=== PATIENT | female | born 1960 | race Caucasian/White ===

== ENCOUNTER 2017-08-08 11:56 | Emergency (ER) | payer BC ==
--- NOTE | 2017-08-08 12:14 | EDPHY ---
H & P Stated Complaint: Right Ankle Injury Time Seen by Provider: 08/08/17 12:13 HPI/ROS: HPI: This is a 57-year-old female who presents with Chief Complaint: Right Ankle injury Location: Right lateral ankle, left anterior knee Quality: Injury Duration: 1 hr prior to arrival Signs and Symptoms: No bleeding, no radiation, no numbness, no weakness, no tingling, no incontinence, + decreased range of motion, + swelling, + pain, no fever Timing: Acute Severity: 11/20 Context: Patient presents with complaints of right lateral ankle and left anterior knee injury. She was at a gas station, helping a another person get into the car when she accidentally tripped over the curb and injured her right ankle and left knee. She explains she everted right ankle and heard a pop. Fell onto left knee. Pain worsened with weight-bearing. Denies LOC/head injury/ neck pain/dizziness/nausea/vomiting/amnesia. Reports takes low-dose naltrexone for anti-inflammatory effects per her primary care provider. She has not taken the medication today. Patient reports that it does not cause her pain to flex her knee but only to weight bear on it. Modifying Factors: None Comment: ROS: see HPI Constitutional: No fever, no chills, no weight loss Eyes: No blurred vision Respiratory: No shortness of breath, no cough Cardiovascular: No chest pain Gastrointestinal: No nausea, no vomiting no diarrhea Genitourinary: No dysuria Extremities: No myalgias Neurologic: No weakness, no numbness Skin: No rashes Hematologic: No bruising, no bleeding MEDICAL/SURGICAL/SOCIAL HISTORY: Medical history: Autoimmune disease Surgical history: Denies Social history: with children. CONSTITUTIONAL: Moderate distress adult white female, awake and alert, no obvious distress HEENT: Atraumatic and normocephalic. NECK: supple, no midline tenderness, flexion 45 degrees, extension 45 degrees, right and left lateral flexion 45 degrees. No meningismus. Cardiovascular: Normal S1/S2, regular rate, regular rhythm, without murmur rub or gallop. PULMONARY/CHEST: Symmetrical and nontender. no crepitus. Clear to auscultation bilaterally. Good air movement. No accessory muscle usage. ABDOMEN: Soft, nondistended, nontender, no ecchymosis. PELVIC: no pain with rocking; bilateral hips flexion 125 degrees, extension 30 degrees, with no pain internal rotation and no pain external rotation. BACK: No midline tenderness, no paraspinous spasm, deep tendon reflexes 2/2, no pain with straight leg raise, No foot drop. Achilles reflexes are equal bilaterally. Able to walk on heels and toes without difficulty. EXTREMITIES: 2/2 pulses, strength 5/5, right Ankle: Plantar flexion to 50, dorsiflexion to 20. Foot inversion to 35 degree. Moderate tenderness/ swelling Anterior talofibular ligament. + tenderness/swelling Calcaneofibular ligament, no tenderness/swelling posterior talofibular ligament, no tenderness/ swelling posterior inferior tibiofibular ligament. Achilles tendon intact. Left KNEE: no effusion, no medial and lateral joint line tenderness, full extension to 180, flexion to 120. No pain with varus and valgus exam. No pain with anterior drawer or posterior drawer test. DIP/PIP/MCP flexion/ extension intact with good light touch sensation. no deformities, no clubbing, no cyanosis or edema. NEUROLOGICAL: no focal neuro deficits. GCS 15. Light touch sensation intact. SKIN: Warm and dry, no erythema. no rash. Good capillary refill. Source: Patient, Family () Exam Limitations: No limitations - Personal History Current Tetanus Diphtheria and Acellular Pertussis (TDAP): Yes Tetanus Vaccine Date: 2010 - Medical/Surgical History Hx Asthma: No Hx Chronic Respiratory Disease: No Hx Diabetes: No Hx Cardiac Disease: No Hx Renal Disease: No Hx Cirrhosis: No Hx Alcoholism: No Hx HIV/AIDS: No Hx Splenectomy or Spleen Trauma: No Other PMH: autoimmune disease - Social History Smoking Status: Never smoked Constitutional: Initial Vital Signs Temperature (C) 36.6 C 08/08/17 12:05 Heart Rate 70 08/08/17 12:05 Respiratory Rate 18 08/08/17 12:05 Blood Pressure 136/85 H 08/08/17 12:05 O2 Sat (%) 96 08/08/17 12:05 O2 Delivery Mode Room Air Allergies/Adverse Reactions: No Known Allergies Allergy (Verified 07/17/12 08:59) Home Medications: Medication Instructions Recorded No Medications [No Meds] 1 ea MISC 07/17/12 Naltrexone HCl 11/13/15 oxyCODONE/APAP 5/325 [Percocet 1 - 2 tab PO Q4H PRN #10 tab 08/08/17 5/325 (*)] Medical Decision Making - Diagnostics Imaging Results: Imaging Impressions Ankle X-Ray 08/08/17 12:08 Impression: Irregular ossification lateral to the talus, which could represent an avulsion fracture. Mild adjacent soft tissue swelling. Knee X-Ray 08/08/17 12:08 Impression: No evidence for acute fracture. Mild early degenerative change in the patellofemoral compartment. Procedures: Procedure: Splint placement. A right walking boot was applied the Emergency Room transportation refrigeration technician. After application of the splint I returned and re-examined the patient. The splint was adequately immobilizing the joint and distal to the splint the patient's circulation and sensation was intact. ED Course/Re-evaluation: Left knee x-ray, right ankle x-ray, medications ordered Given ibuprofen adequate relief of pain Knee x-ray shows my read via PAC mild patellofemoral compartment changes; no fracture, dislocation No signs of neurovascular compromise/tenting of skin/compartment syndrome/ extremities and joints examined above and below area of concern and are neurovascularly intact. Right ankle x-ray shows: Irregular ossification lateral to the talus, which could represent an avulsion fracture. Mild adjacent soft tissue swelling. Showed patient at bedside x-ray films and went over with her and her spouse. Placed in [place] walking boot, crutches, weight-bearing status as tolerated, Ortho follow-up Patient did not take Naltrexone today; Percocet given and prescription for same. Advised not to take naltrexone with Percocet. Patient able to ambulate with crutches without difficulty prior to discharge and reports that she feels comfortable being discharged home. This patient was seen under the supervision of my secondary supervising physician. I evaluated care for this patient independently. Differential Diagnosis: Differential diagnosis includes but is not limited to tibia fracture, fibula fracture, midfoot fracture, Lis Franc fracture, ligament tear, nerve injury, talar fracture. - Data Points Medications Given: Discontinued Medications Ibuprofen (Motrin) 800 mg PO EDNOW ONE Stop: 08/08/17 12:52 Last Admin: 08/08/17 13:07 Dose: 800 mg Oxycodone/Acetaminophen (Percocet 5/325) 1 tab PO EDNOW ONE Stop: 08/08/17 13:50 Last Admin: 04/28/18 13:51 Dose: 1 tab Departure - Departure Disposition: Home, Routine, Self-Care Clinical Impression: Patellofemoral arthritis of left knee Grade 2 ankle sprain Qualifiers: Encounter type: initial encounter Laterality: right Qualified Code(s): S93.401A - Sprain of unspecified ligament of right ankle, initial encounter Closed avulsion fracture of right ankle Qualifiers: Encounter type: initial encounter Qualified Code(s): S82.891A - Other fracture of right lower leg, initial encounter for closed fracture Sprain of left knee Qualifiers: Encounter type: initial encounter Involved ligament of knee: anterior cruciate ligament Qualified Code(s): S83.512A - Sprain of anterior cruciate ligament of left knee, initial encounter Contusion of left knee Qualifiers: Encounter type: initial encounter Qualified Code(s): S80.02XA - Contusion of left knee, initial encounter Condition: Good Instructions: Ankle Sprain (DC), Crutch Instructions (ED), Patellofemoral Pain Syndrome (ED), Avulsion Fracture (ED) Additional Instructions: Wear the right walking boot while out of bed until seen by Orthopedics for follow-up. Use crutches to aid ambulation. Weight-bearing status on the right lower extremity as tolerated depending on pain level. Take Tylenol 650 mg every 4 hours and/or Ibuprofen 600 mg every 8 hours with food as needed for pain. Take Percocet every 6 hr as needed for severe/breakthrough pain. Do not take Tylenol and Percocet together. Do not take Naltrexone and Percocet together. Apply ice for 30 minutes at a time; 2-3 times per day for the next 1-2 days. Follow up with Orthopedics in 7-10 days at which time they will evaluate and recommend with you if conservative management versus MRI is indicated. Return to the ER immediately if you experience new or worsening pain, discoloration, numbness, tingling, or any other symptoms that concern you. Referrals: Angel Rodríguez MD [Primary Care Provider] - As per Instructions Tyrone Carrera MD [Medical Doctor] - As per Instructions Prescriptions: oxyCODONE/APAP 5/325 [Percocet 5/325 (*)] 1 - 2 tab PO Q4H PRN #10 tab PRN Reason: Pain, Severe
[2017-08-08] MEDS ORDERED: IBUPROFEN 800 MG TAB PO ONE (12:51)
[2017-08-08] MEDS ORDERED: OXYCODONE/APAP 5/325 TAB ONE (13:49)
[2017-08-08] MEDS ORDERED: OXYCODONE/APAP 5/325 TAB PO ONE (13:49)
[2017-08-08 14:40] VITALS: BP 132/78
== END 2017-08-08 14:40 | disposition home or self-care (01) ==
DX: S82.891A Other fracture of right lower leg, initial encounter for closed fracture (principal); S93.401A Sprain of unspecified ligament of right ankle, initial encounter; S83.512A Sprain of anterior cruciate ligament of left knee, initial encounter; S80.02XA Contusion of left knee, initial encounter; W01.0XXA Fall on same level from slipping, tripping and stumbling without subsequent striking against object, initial encounter; Y92.524 Gas station as the place of occurrence of the external cause; Y99.8 Other external cause status; Y93.89 Activity, other specified
CPT/HCPCS: L4386